=== PATIENT | female | born 1950 | race Hispanic/Latino ===

== ENCOUNTER 2017-10-03 15:57 | Emergency (ER) | payer MEDICARE, OTHER ==
[2017-10-03 16:07] VITALS: RESP 18; TEMP 98.6; O2SAT 98
--- NOTE | 2017-10-03 16:15 | C.PDOC ---
History Of Present Illness 66 y/o female presents to ED s/p Foosh injury yesterday with c/o right wrist pain. Patient denies numbness, weakness, shoulder pain or any other complaints at this time. Time Seen by Provider: 10/03/17 16:13 Chief Complaint (Nursing): Upper Extremity Problem/Injury History Per: Patient History/Exam Limitations: no limitations Onset/Duration Of Symptoms: Days Current Symptoms Are (Timing): Still Present Quality: "Pain" Past Medical History Reviewed: Historical Data, Nursing Documentation, Vital Signs Vital Signs: Last Vital Signs Temp 98.6 F 10/03/17 16:04 Pulse 84 10/03/17 16:04 Resp 18 10/03/17 16:04 BP 180/86 H 10/03/17 16:04 Pulse Ox 98 10/03/17 16:22 - Medical History PMH: Fractures (LEFT ELBOW) Surgical History: No Surg Hx Family History: States: No Known Family Hx - Social History Hx Alcohol Use: No Hx Substance Use: No Review Of Systems Musculoskeletal: Positive for: Hand Pain Skin: Negative for: Rash, Bruising Neurological: Negative for: Weakness, Numbness Physical Exam - Physical Exam Appears: Non-toxic, No Acute Distress Skin: Warm, Dry, No Rash Head: Atraumatic, Normacephalic Eye(s): bilateral: Normal Inspection Oral Mucosa: Moist Extremity: Tenderness (right wrist snuffbox area and over carpal tunnel ), Capillary Refill (<2 seconds), No Deformity Extremity: Right: Limited ROM To Joint (right wrist) Pulses: Right Radial: Normal Neurological/Psych: Oriented x3, Normal Motor, Normal Sensation ED Course And Treatment O2 Sat by Pulse Oximetry: 98 (RA) Pulse Ox Interpretation: Normal - Other Rad R WRIST X-Ray: Interpreted by Me (NEG) Orthopedic Time Performed: 16:41 Time Out: Side verified, Site verified Procedure: Splint Type: Short, Thumb spica Location: Right, Wrist Consent obtained: Verbal Diagnosis: Sprain Capillary refill: Normal Distal Sensation: Normal Distal Motor Function: Normal Capillary Refill: Normal Compartment: Normal Distal Sensation: Normal Distal Motor Function: Normal Patient tolerated procedure: Well Disposition Counseled Patient/Family Regarding: Studies Performed, Diagnosis, Need For Followup, Rx Given - Disposition Referrals: Homero Mccall MD [Staff Provider] - Disposition: HOME/ ROUTINE Disposition Time: 16:41 Condition: IMPROVED Prescriptions: Acetaminophen [Tylenol 325mg tab] 650 mg PO Q6 #30 tab Ibuprofen [Motrin] 600 mg PO Q6 #30 tab Instructions: Wrist Sprain (DC) Forms: [facility] ([place]er) - Clinical Impression Clinical Impression: Wrist sprain - Scribe Statement The provider has reviewed the documentation as recorded by the Madelineiberin Pelaez All medical record entries made by the Scribe were at my direction and personally dictated by me. I have reviewed the chart and agree that the record accurately reflects my personal performance of the history, physical exam, medical decision making, and the department course for this patient. I have also personally directed, reviewed, and agree with the discharge instructions and disposition.
--- NOTE | 2017-10-03 16:46 | RAD ---
Date of service: 10/03/2017 PROCEDURE: Right Wrist Radiographs. HISTORY: TRAUMA COMPARISON: None. FINDINGS: BONES: No evidence of acute displaced fracture nor dislocation. The osseous structures appear intact. . 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 SOFT TISSUES: No radiopaque foreign bodies are identified. No evidence of subcutaneous air seen. OTHER FINDINGS: None. IMPRESSION: No evidence of acute displaced fracture nor dislocation. 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 . If symptoms persist or occult fracture suspected clinically recommend repeat radiographs in 7-10 days as most fractures should become radiographically evident in this timeframe.
[2017-10-03 17:17] VITALS: BP 162/82; PULSE 80
== END 2017-10-03 17:17 | disposition home or self-care (01) ==
LOC: C.ER 15:57
DX: S63.501A Unspecified sprain of right wrist, initial encounter (principal); W18.30XA Fall on same level, unspecified, initial encounter